=== PATIENT | female | born 1990 | race African-American/Black ===

== ENCOUNTER 2018-11-28 21:32 | Emergency (ER) | payer OTHER ==
[2018-11-28] MEDS ORDERED: NA CHLORIDE 0.9% 1,000 ML ONE (22:58)
[2018-11-28] MEDS ORDERED: KETOROLAC 30 MG/ML INJ ONE (23:26)
[2018-11-28 23:28] LABS: Absolute Lymphocytes (CBC) 1.5 K/uL (0.7-4.9); Basophils % 0.9 % (0-1.3); Hematocrit 34.4 % (36.0-45.0); Lymphocytes % 29.3 % (15.3-44.8); MPV 8.7 fL (7.6-11.3); RBC Red Blood Cell Count 4.04 M/uL (3.86-4.86)
[2018-11-28 23:49] LABS: ALT/SGPT 24 U/L (12-78); AST/SGOT 19 U/L (15-37); Albumin 3.7 g/dL (3.4-5.0); Alkaline Phosphatase 52 U/L (45-117); BUN Blood Urea Nitrogen 13 mg/dL (7-18); Bicarbonate 28 mmol/L (21-32); Bilirubin Direct < 0.1 mg/dL (0-0.2); Bilirubin Total 0.2 mg/dL (0.2-1.0); Glucose Level 73 mg/dL (74-106); Lipase 1040 U/L (73-393); Potassium 3.5 mmol/L (3.5-5.1); Protein, Total 7.4 g/dL (6.4-8.2); Sodium Level 141 mmol/L (136-145)
--- NOTE | 2018-11-29 00:30 | ER ---
Nurse's Notes [facility] Name: Michelle Triplett Age: 28 yrs Sex: Female : 1990 Arrival Date: 11/28/2018 Time: 21:37 Bed 19 Private MD: Diagnosis: Unspecified abdominal pain Presentation: 11/28 22:11 Presenting complaint: Patient states: Abdominal pain for few days described as ao "constipation pain".. Pt negative for nausea and vomiting. Pt also C/O lower leg pain and arms pain related to RA. Transition of care: patient was not received from another setting of care. Onset of symptoms is unknown. Risk Assessment: Do you want to hurt yourself or someone else? Patient reports no desire to harm self or others. Initial Sepsis Screen: Does the patient meet any 2 criteria? No. Patient's initial sepsis screen is negative. Does the patient have a suspected source of infection? No. Patient's initial sepsis screen is negative. Care prior to arrival: None. 22:11 Method Of Arrival: Ambulatory ao 22:11 Acuity: NOLVIA 3 ao Triage Assessment: 22:16 General: Appears in no apparent distress. comfortable, Behavior is calm, cooperative, ao appropriate for age. Pain: Denies pain. Complains of pain in abdomen Pain does not radiate. Lower legs and arms as reported RA. EENT: No signs and/or symptoms were reported regarding the EENT system. Neuro: Level of Consciousness is awake, alert, obeys commands, Oriented to person, place, time, situation, Appropriate for age Moves all extremities. Full function Speech is normal, Facial symmetry appears normal, Pupils are PERRLA. Cardiovascular: Capillary refill < 3 seconds Patient's skin is warm and dry. Respiratory: Airway is patent Respiratory effort is even, unlabored, Respiratory pattern is regular, symmetrical. GI: Abdomen is flat, non-distended, Reports lower abdominal pain. : No signs and/or symptoms were reported regarding the genitourinary system. Derm: Skin is intact, Skin is pink, warm \\T\\ dry. normal, Skin temperature is warm. Musculoskeletal: Circulation, motion, and sensation intact. Range of motion: intact in all extremities. 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 - Social history:: Smoking status: Patient uses tobacco products, smokes one pack cigarettes per day. Patient uses alcohol, occasionally. Patient/guardian denies using street drugs, IV drugs. - Ebola Screening: : Patient negative for fever greater than or equal to 101.5 degrees Fahrenheit, and additional compatible Ebola Virus Disease symptoms Patient denies exposure to infectious person Patient denies travel to an Ebola-affected area in the 21 days before illness onset. Screenin:16 Abuse screen: Denies threats or abuse. Denies injuries from another. Nutritional ao screening: No deficits noted. Tuberculosis screening: No symptoms or risk factors identified. Fall Risk None identified. Assessment: 22:20 Reassessment: See triage assessment. ao 23:31 Reassessment: Patient appears in no apparent distress at this time. Patient and/or ao family updated on plan of care and expected duration. Pain level reassessed. Patient is alert, oriented x 3, equal unlabored respirations, skin warm/dry/pink. 23:32 GI: Bowel sounds present X 4 quads. Abd is soft and non tender Abd is non tender. ao 11/29 01:07 Reassessment: Waiting on print DC instructions. ao Vital Signs: 11/28 22:14 BP 125 / 87; Pulse 69 RA; Resp 16 S; Temp 98.6(O); Pulse Ox 99% on R/A; Weight 63.5 kg ao (R); Height 5 ft. 6 in. (167.64 cm) (R); Pain 8/10; 23:31 BP 132 / 80; Pulse 65; Resp 16; Pulse Ox 100% on R/A; ao 22:14 Body Mass Index 22.60 (63.50 kg, 167.64 cm) ao ED Course: 21:37 Patient arrived in ED. es 22:03 Mars Yoo, SUMA is Primary Nurse. ao 22:11 Clarke Coles PA is PHCP. cp 22:11 Tristin Kaye MD is Attending Physician. cp 22:13 Triage completed. ao 22:15 Arm band placed on right wrist. Patient placed in an exam room, on a stretcher, on ao pulse oximetry. 22:19 Patient has correct armband on for positive identification. Pulse ox on. NIBP on. ao 23:01 US Transvaginal Study (Probe) In Process Unspecified. EDMS 23:02 Inserted saline lock: 20 gauge in right antecubital area, using aseptic technique. ao Blood collected. 11/29 00:42 XRAY Abdomen With Erect In Process Unspecified. EDMS 01:08 No provider procedures requiring assistance completed. IV discontinued, intact, ao bleeding controlled, No redness/swelling at site. Pressure dressing applied. Administered Medications: 11/28 23:02 Drug: NS 0.9% 1000 ml Route: IV; Rate: 1 bolus; Site: right antecubital; ao 11/29 00:43 Follow up: IV Status: Completed infusion; IV Intake: 1000ml ao 11/28 23:16 Drug: TORadol 30 mg Route: IVP; Site: right antecubital; ao 11/29 00:43 Follow up: Response: No adverse reaction ao Intake: 00:43 IV: 1000ml; Total: 1000ml. ao Outcome: 00:23 Discharge ordered by . cp 01:08 Discharged to home ambulatory. ao 01:08 Condition: stable 01:08 Discharge instructions given to patient, Instructed on discharge instructions, follow up and referral plans. Demonstrated understanding of instructions, follow-up care, medications, Prescriptions given X 2. 01:18 Patient left the ED. ao Signatures: Dispatcher [employer] Kristen Castillo Corey, PA PA cp Ortiz, Alex, RN RN ao
--- NOTE | 2018-11-29 00:31 | EDPHYS ---
Physician Documentation [facility] Name: Michelle Triplett Age: 28 yrs Sex: Female : 1990 Arrival Date: 11/28/2018 Time: 21:37 Bed 19 Private MD: ED Physician Tristin Kaye HPI: 11/28 22:40 This 28 yrs old Black Female presents to ER via Ambulatory with complaints of cp Constipation, Back Pain, Abdominal Pain. 22:40 The patient presents with abdominal pain in the lower abdomen. cp 22:40 Onset: The symptoms/episode began/occurred few days. The symptoms do not radiate. cp Associated signs and symptoms: Pertinent positives: constipation, vaginal bleeding, Pertinent negatives: nausea and vomiting, anorexia, blood in stools, chest pain, diarrhea, dysuria, fever. The symptoms are described as achy. Modifying factors: the symptoms are aggravated by pressure. 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 - Social history:: Smoking status: Patient uses tobacco products, smokes one pack cigarettes per day. Patient uses alcohol, occasionally. Patient/guardian denies using street drugs, IV drugs. - Ebola Screening: : Patient negative for fever greater than or equal to 101.5 degrees Fahrenheit, and additional compatible Ebola Virus Disease symptoms Patient denies exposure to infectious person Patient denies travel to an Ebola-affected area in the 21 days before illness onset. ROS: 22:50 Constitutional: Negative for body aches, chills, fever, poor PO intake. cp 22:50 Eyes: Negative for injury, pain, redness, and discharge. cp 22:50 ENT: Negative for drainage from ear(s), ear pain, sore throat, difficulty swallowing, difficulty handling secretions. 22:50 Cardiovascular: Negative for chest pain, palpitations. 22:50 Respiratory: Negative for cough, shortness of breath, wheezing. 22:50 Abdomen/GI: Positive for abdominal pain, constipation, Negative for vomiting, diarrhea, anorexia, black/tarry stool, rectal bleeding. 22:50 Back: Negative for pain at rest, pain with movement. 22:50 : Positive for vaginal bleeding, Negative for urinary symptoms. 22:50 Skin: Negative for rash. 22:50 All other systems are negative. Exam: 23:00 Head/Face: Normocephalic, atraumatic. cp 23:00 Constitutional: The patient appears in no acute distress, alert, awake, non-toxic, well developed, well nourished. 23:00 Eyes: Periorbital structures: appear normal, Conjunctiva: normal, no exudate, no cp injection, Sclera: no appreciated abnormality, Lids and lashes: appear normal, bilaterally. 23:00 ENT: External ear(s): are unremarkable, Nose: is normal, Mouth: Lips: moist, Oral mucosa: pink and intact, moist, Posterior pharynx: is normal, airway is patent, no erythema, no exudate. 23:00 Chest/axilla: Inspection: normal, Palpation: is normal, no crepitus, no tenderness. 23:00 Cardiovascular: Rate: normal, Rhythm: regular. 23:00 Respiratory: the patient does not display signs of respiratory distress, Respirations: normal, no use of accessory muscles, no retractions, no splinting, no tachypnea, labored breathing, is not present, Breath sounds: are clear throughout, no decreased breath sounds, no stridor, no wheezing. 23:00 Abdomen/GI: Inspection: abdomen appears normal, Bowel sounds: active, all quadrants, Palpation: soft, in all quadrants, mild abdominal tenderness, in the right lower quadrant and left lower quadrant, rebound tenderness, is not appreciated, voluntary guarding, is elicited in all quadrants, involuntary guarding, is not appreciated. 23:00 Back: pain, is absent, ROM is normal. 11/29 00:23 : Pelvic Exam: The exam is refused by the patient/guardian. The risks and cp consequences are understood by the patient. Vital Signs: 11/28 22:14 BP 125 / 87; Pulse 69 RA; Resp 16 S; Temp 98.6(O); Pulse Ox 99% on R/A; Weight 63.5 kg ao (R); Height 5 ft. 6 in. (167.64 cm) (R); Pain 8/10; 23:31 BP 132 / 80; Pulse 65; Resp 16; Pulse Ox 100% on R/A; ao 22:14 Body Mass Index 22.60 (63.50 kg, 167.64 cm) ao MDM: 00:22 Data reviewed: vital signs, nurses notes, lab test result(s), radiologic studies, plain cp films, ultrasound, and as a result, I will discharge patient. 22:28 Patient medically screened. cp 23:00 Differential diagnosis: appendicitis, bowel obstruction, cholecystitis, Cholelithiasis, cp diverticulitis, Endometriosis, gastritis, non-specific abd pain, Ovarian Torsion, pancreatitis, Pelvic Inflammatory Disease, Pyelonephritis, Ureterolithiasis, urinary tract infection. 11/29 00:19 ED course: xray of abdomen negative for obstruction. cp 00:22 Counseling: I had a detailed discussion with the patient and/or guardian regarding: the cp historical points, exam findings, and any diagnostic results supporting the discharge/admit diagnosis, lab results, radiology results, to return to the emergency department if symptoms worsen or persist or if there are any questions or concerns that arise at home. Response to treatment: the patient's symptoms have markedly improved after treatment. Special discussion: Based on the patient's Hx, exam, and Dx evaluation, there is no indication for emergent surgery or inpatient Tx. It is understood by the patient/guardian that if the Sx's persist or worsen they need to return immediately for re-evaluation. 11/28 21: Order name: Basic Metabolic Panel 11/28 21: Order name: CBC with Diff; Complete Time: 23:39 11/28 23:39 Interpretation: Normal except: HGB 11.1; HCT 34.4; RDW 18.1. 11/28 21: Order name: Hepatic Function; Complete Time: 00:25 cp 11/29 00:27 Interpretation: Normal except: GLOB 3.7; A/G 1.0. 11/28 21: Order name: Lipase; Complete Time: 00:25 11/29 00:26 Interpretation: Abnormal: LIP 1040. 11/28 21: Order name: IV Saline Lock; Complete Time: 23:04 11/28 21: Order name: Basic Metabolic Panel; Complete Time: 00:25 EDMS 11/29 00:27 Interpretation: Normal except: CL 108; GLUC 73. 11/28 21: Order name: US Transvaginal Study (Probe) 11/28 23:40 Order name: XRAY Abdomen With Erect 11/29 00:34 Order name: Urine Dipstick--Ancillary (enter results) [facility] 11/29 00:34 Order name: Urine --Ancillary (enter results) [facility] 11/28 22:29 Order name: Labs collected and sent; Complete Time: 23:04 cp 11/28 22:29 Order name: Urine Dipstick-Ancillary (obtain specimen); Complete Time: 00:43 11/28 22:29 Order name: Urine Test (obtain specimen); Complete Time: 00:43 cp Administered Medications: 11/28 23:02 Drug: NS 0.9% 1000 ml Route: IV; Rate: 1 bolus; Site: right antecubital; ao 11/29 00:43 Follow up: IV Status: Completed infusion; IV Intake: 1000ml 11/28 23:16 Drug: TORadol 30 mg Route: IVP; Site: right antecubital; ao 11/29 00:43 Follow up: Response: No adverse reaction ao Disposition: 04:08 Co-signature as Attending Physician, Tristin Kaye MD I agree with the assessment and tw4 plan of care. Disposition: 11/29/18 00:23 Discharged to Home. Impression: Unspecified abdominal pain. - Condition is Stable. - Discharge Instructions: Abdominal Pain, Adult, Constipation, Adult. - Prescriptions for Miralax 17 gram/dose Oral - take 1 packet by ORAL route once daily dilute powder in 8 ounces of water or juice; 15 packet. ketoprofen 50 mg Oral capsule - take 1 capsule by ORAL route every 6 hours; 30 capsule. - Medication Reconciliation Form, Thank You Letter, Antibiotic Education, Prescription Opioid Use form. - Follow up: Private Physician; When: 1 - 2 days; Reason: Recheck today's complaints. - Problem is new. - Symptoms have improved. Signatures: Dispatcher [employer] [facility] Clarke Coles PA PA cp Ortiz, Alex, RN RN Tristin García MD MD tw4 Corrections: (The following items were deleted from the chart) 00:50 11/28 22:31 Creatinine for Radiology+C.LAB.BRZ ordered. EDMS EDMS 11/29 00:53 11/28 22:31 UA MICROSCOPIC+U.LAB.BRZ ordered. EDMS EDWV 11/29 01:18 00:23 11/29/2018 00:23 Discharged to Home. Impression: Unspecified abdominal pain. ao Condition is Stable. Forms are Medication Reconciliation Form, Thank You Letter, Antibiotic Education, Prescription Opioid Use. Follow up: Private Physician; When: 1 - 2 days; Reason: Recheck today's complaints. Problem is new. Symptoms have improved. cp
[2018-11-29 00:53] LABS: Urine Blood 2+ (NEG); Urine Glucose NEGATIVE (NEG); Urine Protein 1+ (NEG); Urine Specific Gravity 1.025 (1.005-1.030)
--- NOTE | 2018-11-29 08:14 | RAD REPORT ---
EXAM DESCRIPTION: US - Transvaginal Study Probe - 11/28/2018 10:58 pm CLINICAL HISTORY: lower abdomen pain Pelvic pain. COMPARISON: No comparisons FINDINGS: The uterus is normal in size, shape and echotexture. The uterus measures 7.5 x 3.6 x 4.0 c m. The endometrial stripe measures 9 mm, normal. Both ovaries are normal in size, shape and echotexture. The right ovary measures 2.3 x 1.5 x 1.1 cm. The left ovary measures 2.4 x 1.3 x 1.1 cm. No ovarian or parovarian lesions. No adnexal masses. Normal Doppler blood flow was demonstrated to both ovaries. No significant pelvic ascites. IMPRESSION: Unremarkable study.
--- NOTE | 2018-11-29 08:21 | RAD REPORT ---
EXAM DESCRIPTION: RAD - Abdomen W Erect - 11/29/2018 12:18 am CLINICAL HISTORY: constipation;Abd pain Pain COMPARISON: No comparisons FINDINGS: The bowel gas pattern is non-obstructive. No evidence of free air or pneumatosis. No suspi cious calcifications. No significant bony findings. Moderate stool is present in the colon. IMPRESSION: Moderate fecal retention in the colon.
== END 2018-11-29 01:18 | disposition home or self-care (01) ==
LOC: ER 21:32
DX: R10.30 Lower abdominal pain, unspecified (principal); F17.210 Nicotine dependence, cigarettes, uncomplicated
CPT/HCPCS: 36415; 74019; 76830; 80048; 80076; 81003; 81025; 83690; 85025; 96361; 96374; 99284; J7030